=== PATIENT | female | born 1960 ===

== ENCOUNTER → 2018-10-09 21:11 | Outpatient (REF) | payer SELFPAY ==
[2018-10-11 18:01] LABS: Sex Hormone Binding Globulin 42 nmol/L (14-73)
[2018-10-12 16:01] LABS: Estradiol 17 pg/mL
[2018-10-12 16:05] LABS: Progesterone < 0.5 ng/mL
[2018-10-13 16:13] LABS: Dehydroepiandrosterone Sulfate 12 mcg/dL (8-188)
[2018-10-13 17:33] LABS: Testosterone Free 1.7 pg/mL (0.1-6.4); Testosterone Total 16 ng/dL (2-45)
[2018-10-18 09:28] LABS: Estrogen 84.7 pg/mL
== END ==
LOC: LAB 21:11
PROVIDERS: Visit Provider Naturopath
DX: R53.83 Other fatigue (principal); G47.00 Insomnia, unspecified; M79.7 Fibromyalgia; R68.82 Decreased libido; R63.5 Abnormal weight gain
CPT/HCPCS: 82627; 82670; 82672; 84144; 84270; 84402; 84403